=== PATIENT | male | born 1975 | race Caucasian/White ===

== ENCOUNTER 2019-03-27 11:05 | Inpatient (IN) | payer OTHER ==
[~2019-03-27] VITALS: Ht 175.3 cm; Wt 71.8 kg
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
[2019-03-27] MEDS ORDERED: MORPHINE SULFATE 4 MG/ML, 1ML ONE ×2 (11:26→12:34)
[2019-03-27] MEDS ORDERED: ONDANSETRON 2MG/ML, 2ML ONE (11:26)
[2019-03-27] MEDS ORDERED: morphine SULFATE 10 MG/ML, 1ML IVPush ONE (11:30)
[2019-03-27] MEDS ORDERED: ONDANSETRON 2MG/ML, 2ML IVPush ONE (11:30)
--- NOTE | 2019-03-27 11:48 | NUR ---
patient returned from ct scan. iv in place. on monitor, medicated. guards at bedside.
[2019-03-27 12:00] LABS: BASOPHILS # (AUTO) 0.02 x10^3/uL (0-0.1); BASOPHILS % (AUTO) 0 % (0-1); EOSINOPHILS % (AUTO) 0 % (1-7); LYMPHOCYTES # (AUTO) 0.47 x10^3/uL (1-3.4); LYMPHOCYTES % (AUTO) 4 % (22-44); MD NO; MEAN CORPUSCULAR HEMOGLOBIN 30.9 pg (27.5-34.5); MEAN CORPUSCULAR VOLUME 91.1 fL (81-97); MEAN PLATELET VOLUME 7.7 fL (7.4-10.4); MONOCYTES # (AUTO) 0.44 x10^3/uL (0.2-0.8); MONOCYTES % (AUTO) 4 % (2-9); NEUTROPHILS # (AUTO) 9.66 x10^3/uL (1.8-6.8); NEUTROPHILS % (AUTO) 91 % (42-75); PLATELET COUNT 285 x10^3/uL (130-400); RED BLOOD COUNT 5.07 x10^6/uL (4.38-5.82); RED CELL DISTRIBUTION WIDTH 13.7 % (9.4-14.8)
[2019-03-27 12:10] LABS: INTERNATIONAL NORMALIZED RATIO 1.05 (0.93-1.1)
[2019-03-27 12:12] LABS: ANION GAP 8 mmol/L (5-15); CALCIUM 9.4 mg/dL (8.5-10.1); CHLORIDE 107 mmol/L (98-107); CREATININE 0.84 mg/dL (0.7-1.3)
--- NOTE | 2019-03-27 12:47 | NUR ---
patient continues to have pain in left face. he is swollen, and multiple fx/s. got order for and gave morphine. on monitor, rails up
[2019-03-27] MEDS: PLEASE ENTER ALLERGIES MC SCH ×2 (13:00→20:41)
[2019-03-27] MEDS ORDERED: MORPHINE SULFATE 4 MG/ML, 1ML IVPush ONE (13:00)
[2019-03-27] MEDS ORDERED: AMPICILLIN/SULBACTAM 3 GM in SODIUM CHLORIDE 0.9% 100 ML IV ONE (13:00)
--- NOTE | 2019-03-27 13:02 | NUR ---
PATIENT ROOM ASSIGNED. AWAITING NURSE REPORT. PATIENT STATES SOME RELIEF FROM PAIN MEDICATIONS.
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
[2019-03-27] MEDS ORDERED: IBUP-1223 PO (13:29)
[2019-03-27] MEDS ORDERED: BACITRACIN ZINC OINT 500U/GM, 0.9 GM ONE (13:31)
[2019-03-27] MEDS ORDERED: ACETAMINOPHEN 325 MG TABLET PO PRN (16:30)
[2019-03-27] MEDS ORDERED: ONDANSETRON 2MG/ML, 2ML IVPush PRN ×2 (16:30)
[2019-03-27 16:37] VITALS: BP 116/73
[2019-03-27] MEDS: AMPICILLIN/SULBACTAM 1,500 MG in SODIUM CHLORIDE 0.9% 50 ML IV SCH (18:41)
[2019-03-27] MEDS: OXYcodone/APAP 5/325MG TABLET PO PRN (18:41)
[2019-03-27] MEDS: SODIUM CHLORIDE 0.9% 1,000 ML IV SCH (18:46)
[2019-03-27 19:15] VITALS: BP 109/63
[2019-03-27] MEDS ORDERED: LIDODERM 5% PATCH TD ONE (23:00)
[2019-03-28] MEDS: AMPICILLIN/SULBACTAM 1,500 MG in SODIUM CHLORIDE 0.9% 50 ML IV SCH ×3 (01:01→11:42)
[2019-03-28] MEDS: OXYcodone/APAP 5/325MG TABLET PO PRN ×2 (01:05→06:24)
[2019-03-28 01:18] VITALS: BP 104/64
[2019-03-28 06:55] VITALS: BP 114/77
[2019-03-28] MEDS: SODIUM CHLORIDE 0.9% 1,000 ML IV SCH (09:07)
[2019-03-28] MEDS ORDERED: BALANCED SALT OPHTH IRRIG SOLN 18ML ONE (12:26)
[2019-03-28] MEDS ORDERED: OXYMETAZOLINE NASAL SPRAY 0.05%, 15ML ONE ×2 (12:26→12:42)
[2019-03-28] MEDS ORDERED: MIDAZOLAM 1 MG/ML, 2ML ONE (12:36)
[2019-03-28] MEDS ORDERED: FENTANYL PF 250 MCG/5ML ONE (12:37)
[2019-03-28] MEDS ORDERED: DEXAMETHASONE 4 MG/ML, 1ML ONE (12:51)
[2019-03-28] MEDS ORDERED: PROPOFOL 10 MG/ML, 20ML ONE (12:51)
[2019-03-28] MEDS ORDERED: ONDANSETRON 2MG/ML, 2ML ONE (12:51)
[2019-03-28] MEDS ORDERED: CEFAZOLIN 1,000 MG ONE (12:51)
[2019-03-28] MEDS ORDERED: SUCCINYLCHOLINE 20 MG/ML, 10ML ONE (12:51)
[2019-03-28] MEDS ORDERED: LIDOCAINE 1%-EPI 1:100K, 20ML INFIL ONE (13:25)
[2019-03-28] MEDS ORDERED: MEPERIDINE/PF 50 MG/ML ONE (14:10)
[2019-03-28] MEDS ORDERED: FENTANYL PF 100 MCG/2ML ONE (14:33)
[2019-03-28] MEDS ORDERED: OXYcodone 5 MG/5 ML ORAL.SOL UDC ONE (14:33)
[2019-03-28] MEDS ORDERED: DIAZEPAM 5 MG/ML, 2ML IVPush PRN (15:00)
[2019-03-28] MEDS ORDERED: FENTANYL PF 100 MCG/2ML IV PRN (15:00)
[2019-03-28] MEDS ORDERED: OXYcodone 5 MG/5 ML ORAL.SOL UDC PO PRN (15:00)
[2019-03-28] MEDS ORDERED: KETOROLAC 30 MG/1 ML IV PRN (15:00)
[2019-03-28] MEDS ORDERED: LABETALOL 5MG/ML, 20ML IV PRN (15:00)
[2019-03-28] MEDS ORDERED: HYDROmorphone 2 MG/ML, 1ML IVPush PRN (15:00)
[2019-03-28] MEDS ORDERED: ALBUTEROL SULFATE 2.5 MG/3 ML NPPB PRN (15:00)
[2019-03-28] MEDS ORDERED: MEPERIDINE/PF 25MG/0.5ML IVPush PRN (15:00)
[2019-03-28] MEDS ORDERED: hydrALAzine 20 MG/ML, 1ML IV PRN (15:00)
[2019-03-28] MEDS ORDERED: ACETAMINOPHEN 325 MG TABLET PO PRN (15:00)
[2019-03-28] MEDS ORDERED: PROMETHAZINE 25 MG/ML, 1ML IV PRN (15:00)
[2019-03-28 15:40] VITALS: BP 106/75
[2019-03-28] MEDS ORDERED: AMPICILLIN/SULBACTAM 1,500 MG in SODIUM CHLORIDE 0.9% 50 ML IV SCH (17:00)
[2019-03-28] MEDS: AMPICILLIN/SULBACTAM 1,500 MG in SODIUM CHLORIDE 0.9% 100 ML IV SCH ×2 (18:18→23:26)
[2019-03-28 18:42] VITALS: BP 124/74
[2019-03-28] MEDS: IBUPROFEN 800 MG TABLET PO SCH (21:01)
[2019-03-28 23:31] VITALS: BP 116/67
[2019-03-28] MEDS: OXYcodone/APAP 7.5/325MG TABLET PO PRN (23:33)
[2019-03-29 03:35] VITALS: BP 101/60
[2019-03-29 05:32] LABS: BASOPHILS # (AUTO) 0.01 x10^3/uL (0-0.1); BASOPHILS % (AUTO) 0 % (0-1); EOSINOPHILS % (AUTO) 0 % (1-7); LYMPHOCYTES # (AUTO) 0.74 x10^3/uL (1-3.4); LYMPHOCYTES % (AUTO) 9 % (22-44); MD NO; MEAN CORPUSCULAR HEMOGLOBIN 31.6 pg (27.5-34.5); MEAN CORPUSCULAR HGB CONC 34.1 g/dL (33.2-36.2); MEAN CORPUSCULAR VOLUME 92.7 fL (81-97); MEAN PLATELET VOLUME 7.7 fL (7.4-10.4); MONOCYTES # (AUTO) 0.72 x10^3/uL (0.2-0.8); MONOCYTES % (AUTO) 8 % (2-9); NEUTROPHILS # (AUTO) 7.16 x10^3/uL (1.8-6.8); NEUTROPHILS % (AUTO) 83 % (42-75); PLATELET COUNT 245 x10^3/uL (130-400); RED BLOOD COUNT 4.27 x10^6/uL (4.38-5.82); RED CELL DISTRIBUTION WIDTH 13.9 % (9.4-14.8)
[2019-03-29] MEDS: OXYcodone/APAP 7.5/325MG TABLET PO PRN (05:37)
[2019-03-29] MEDS: AMPICILLIN/SULBACTAM 1,500 MG in SODIUM CHLORIDE 0.9% 100 ML IV SCH ×2 (05:37→11:06)
[2019-03-29 05:38] LABS: CHLORIDE 107 mmol/L (98-107)
[2019-03-29 05:49] LABS: ALANINE AMINOTRANSFERASE 14 U/L (12-78); ALBUMIN 3.6 g/dL (3.4-5.0); ALKALINE PHOSPHATASE 49 U/L (45-117); ANION GAP 5 mmol/L (5-15); BILIRUBIN,TOTAL 1.2 mg/dL (0.2-1.0); CALCIUM 8.9 mg/dL (8.5-10.1); CREATININE 0.73 mg/dL (0.7-1.3); TOTAL PROTEIN 6.3 g/dL (6.4-8.2)
[2019-03-29 07:18] VITALS: BP 117/72
[2019-03-29] MEDS: IBUPROFEN 800 MG TABLET PO SCH (08:25)
[2019-03-29] MEDS ORDERED: AMOX1TAB64 PO (11:33)
[2019-03-29] MEDS ORDERED: ONDA4TAB13 SL (11:33)
[2019-03-29 11:38] VITALS: BP 116/69
== END 2019-03-29 12:10 | disposition home or self-care (01) | DRG 131 ==
LOC: ED 12:19 → OBSVTOIN 12:20 → INTOOBSV 12:20 → EDIP 12:20 → ED 13:03 → 4NOR 14:00
PROVIDERS: ADMIT Hospitalist; ATTEND Internal Medicine
PROC: 0NST04Z Reposition Right Mandible with Internal Fixation Device, Open Approach (ICD-10-PCS; 2019-03-28)
PROC: 0NSV04Z Reposition Left Mandible with Internal Fixation Device, Open Approach (ICD-10-PCS; principal; 2019-03-28 12:45)
DX: S02.66XA Fracture of symphysis of mandible, initial encounter for closed fracture (principal); T79.7XXA Traumatic subcutaneous emphysema, initial encounter; S02.642A Fracture of ramus of left mandible, initial encounter for closed fracture; W10.9XXA Fall (on) (from) unspecified stairs and steps, initial encounter; G89.29 Other chronic pain; M43.6 Torticollis; M48.07 Spinal stenosis, lumbosacral region; S02.40B Malar fracture, left side; S02.40DA Maxillary fracture, left side, initial encounter for closed fracture; Y93.89 Activity, other specified; Y92.89 Other specified places as the place of occurrence of the external cause; Y99.8 Other external cause status
CPT/HCPCS: 36415; 70486; 71045; 80048; 80053; 85025; 85610; 85730; 93005; C1713; G0378; J0295; J0690; J1100; J2175; J2250; J2405; J2704; J3010; J3490; J0330; J2270; J7030

== ENCOUNTER 2019-05-06 09:22 | Day surgery (SDC) | payer OTHER ==
[~2019-05-06] VITALS: Ht 175.3 cm; Wt 71.0 kg
[~2019-05-06 09:22] MED LIST: AMOX1TAB64 PO; IBUP-1223 PO; ONDA4TAB13 SL
[2019-05-06 09:45] VITALS: BP 118/81
[2019-05-06] MEDS ORDERED: LACTATED RINGERS 1,000 ML IV SCH (09:50)
[2019-05-06] MEDS ORDERED: AMOX1TAB64 PO (09:51)
[2019-05-06] MEDS ORDERED: EPINEPHRINE 1 MG/ML, 1ML ONE (12:44)
[2019-05-06] MEDS ORDERED: OXYMETAZOLINE NASAL SPRAY 0.05%, 15ML ONE (12:44)
[2019-05-06] MEDS ORDERED: BALANCED SALT OPHTH IRRIG SOLN 18ML ONE (12:44)
[2019-05-06] MEDS ORDERED: FENTANYL PF 250 MCG/5ML ONE (12:55)
[2019-05-06] MEDS ORDERED: MIDAZOLAM 1 MG/ML, 2ML ONE (12:55)
[2019-05-06] MEDS ORDERED: LIDOCAINE 1%-EPI 1:100K, 50ML INFIL ONE (13:22)
[2019-05-06] MEDS ORDERED: KETOROLAC 30 MG/1 ML ONE (13:51)
[2019-05-06] MEDS ORDERED: FENTANYL PF 100 MCG/2ML ONE (13:51)
[2019-05-06] MEDS ORDERED: OXYcodone 5 MG/5 ML ORAL.SOL UDC ONE (13:51)
[2019-05-06] MEDS: FENTANYL PF 100 MCG/2ML IV PRN ×2 (13:54→14:22)
[2019-05-06] MEDS ORDERED: METOCLOPRAMIDE 5 MG/ML, 2ML IV PRN (14:00)
[2019-05-06] MEDS ORDERED: OXYcodone 5 MG/5 ML ORAL.SOL UDC PO PRN (14:00)
[2019-05-06] MEDS ORDERED: ALBUTEROL SULFATE 2.5 MG/3 ML NPPB PRN (14:00)
[2019-05-06] MEDS ORDERED: LABETALOL 5MG/ML, 20ML IV PRN (14:00)
[2019-05-06] MEDS ORDERED: MEPERIDINE/PF 25MG/0.5ML IVPush PRN (14:00)
[2019-05-06] MEDS ORDERED: hydrALAzine 20 MG/ML, 1ML IV PRN (14:00)
[2019-05-06] MEDS ORDERED: KETOROLAC 30 MG/1 ML IV PRN (14:00)
[2019-05-06] MEDS ORDERED: PROMETHAZINE 25 MG/ML, 1ML IV PRN (14:00)
[2019-05-06] MEDS ORDERED: ONDANSETRON 2MG/ML, 2ML IVPush PRN (14:00)
[2019-05-06] MEDS ORDERED: HYDROmorphone 1 MG/ML, 1ML INJ IV PRN (14:00)
[2019-05-06] MEDS ORDERED: ROCURONIUM 10MG/ML,5ML ONE (15:55)
[2019-05-06] MEDS ORDERED: ONDANSETRON 2MG/ML, 2ML ONE (15:55)
[2019-05-06] MEDS ORDERED: PROPOFOL 10 MG/ML, 20ML ONE (15:55)
[2019-05-06] MEDS ORDERED: SUGAMMADEX 200 MG/2 ML IVPush ONE (15:55)
[2019-05-06] MEDS ORDERED: CEFAZOLIN 1,000 MG ONE (15:55)
[2019-05-06] MEDS ORDERED: SUCCINYLCHOLINE 20 MG/ML, 10ML ONE (15:55)
== END 2019-05-06 15:40 | disposition home or self-care (01) ==
LOC: OUT 09:22
PROVIDERS: ATTEND Otolaryngology Facial Plastic Surgery
DX: T84.228A Displacement of internal fixation device of other bones, initial encounter (principal); Z79.1 Long term (current) use of non-steroidal anti-inflammatories (NSAID); Z88.8 Allergy status to other drugs, medicaments and biological substances; Y83.8 Other surgical procedures as the cause of abnormal reaction of the patient, or of later complication, without mention of misadventure at the time of the procedure
CPT/HCPCS: 20680; 70100; J0171; J0330; J0690; J1885; J2250; J2405; J2704; J3010; J7120